=== PATIENT | male | born 1995 | race Caucasian/White ===

== ENCOUNTER 2017-11-08 13:19 | Emergency (ER) | payer MEDICAID ==
[~2017-11-08] VITALS: Ht 170.2 cm; Wt 64.0 kg
[2017-11-08] MEDS ORDERED: LIDOcaine 1% 30ml vial IJ ONE (13:50)
[2017-11-08] MEDS ORDERED: TETanus/Pertussis (Acell)/Diphther VAC/PF (Tdap-Adult) 0.5ml syringe IM ONE (13:50)
[2017-11-08] MEDS ORDERED: HYDR-569 PO (14:56)
[2017-11-08] MEDS ORDERED: CEPH-571 PO (14:56)
[2017-11-08 15:34] VITALS: BP 135/65
== END 2017-11-08 15:36 | disposition home or self-care (01) ==
LOC: ER 13:20
DX: S61.213A Laceration without foreign body of left middle finger without damage to nail, initial encounter (principal); Z79.899 Other long term (current) drug therapy; W22.8XXA Striking against or struck by other objects, initial encounter; Y93.89 Activity, other specified; Y92.89 Other specified places as the place of occurrence of the external cause; Y99.8 Other external cause status
CPT/HCPCS: 12041; 90471; 90715; 99284; A6255; A6449; J3490; 12001; 99283

== ENCOUNTER 2020-04-22 21:16 | Emergency (ER) | payer MEDICAID ==
[~2020-04-22] VITALS: Ht 177.8 cm; Wt 74.1 kg
[~2020-04-22 21:16] MED LIST: CEPH-571 PO; HYDR-4383 PO
[2020-04-22 21:20] VITALS: BP 161/94
[2020-04-22] MEDS ORDERED: HYDROcodone/acetaminophen 10/325mg tab PO ONE (21:35)
[2020-04-22] MEDS ORDERED: PENI250T2 PO (21:35)
[2020-04-22] MEDS ORDERED: NAPR-56 PO (21:35)
== END 2020-04-22 21:50 | disposition home or self-care (01) ==
LOC: ER 21:17
DX: K04.7 Periapical abscess without sinus (principal); F17.200 Nicotine dependence, unspecified, uncomplicated; Z79.899 Other long term (current) drug therapy
CPT/HCPCS: 99283

== ENCOUNTER 2021-02-10 10:25 | Emergency (ER) | payer MEDICAID ==
[~2021-02-10] VITALS: Ht 175.3 cm; Wt 66.7 kg
[2021-02-10 11:11] VITALS: BP 148/96
[2021-02-10] MEDS ORDERED: HYDR-3965 PO (13:11)
== END 2021-02-10 13:28 | disposition home or self-care (01) ==
LOC: ER 10:26
DX: R22.1 Localized swelling, mass and lump, neck (principal); M54.2 Cervicalgia; Z79.899 Other long term (current) drug therapy; Z98.890 Other specified postprocedural states
CPT/HCPCS: 99283